=== PATIENT | female | born 1955 | race Caucasian/White ===

== ENCOUNTER 2017-02-10 00:57 | Emergency (ER) | payer OTHER ==
[~2017-02-10] VITALS: Ht 152.4 cm; Wt 55.0 kg
[~2017-02-10 00:57] MED LIST: ESTR0.5T PO; OMEP1PAC PO; SUCR1TAB26 PO
[2017-02-10] MEDS ORDERED: SODIUM CHLORIDE 0.9% 1,000 ML IV ONE ×2 (01:24→04:30)
[2017-02-10] MEDS ORDERED: SODIUM CHLORIDE FLUSH 10ML SYR IVF ONE (01:30)
[2017-02-10] MEDS ORDERED: ONDANSETRON 2MG/ML, 2ML IVPush ONE ×2 (01:30→04:30)
[2017-02-10] MEDS ORDERED: ONDANSETRON 2MG/ML, 2ML ONE (01:48)
[2017-02-10] MEDS ORDERED: MORPHINE SULFATE 4 MG/ML, 1ML ONE ×2 (01:48→04:08)
[2017-02-10] MEDS: MORPHINE SULFATE 4 MG/ML, 1ML IVPush PRN ×2 (01:51→04:14)
[2017-02-10 01:55] LABS: HEMOGLOBIN 12.9 g/dL (11.7-16.4)
[2017-02-10] MEDS ORDERED: PHENERGAN PO (01:57)
[2017-02-10 02:07] LABS: BLOOD UREA NITROGEN 16 mg/dL (7-18)
[2017-02-10 02:10] LABS: ASPARTATE AMINO TRANSFERASE 156 U/L (15-37)
[2017-02-10] MEDS ORDERED: FAMOTIDINE 20 MG/2 ML IVP ONE (02:30)
[2017-02-10] MEDS ORDERED: MAALOX/HYOSCYAMINE/LIDOCAINE 45 ML BOTTLE PO ONE (02:30)
[2017-02-10] MEDS ORDERED: MAALOX/HYOSCYAMINE/LIDOCAINE 45 ML BOTTLE ONE (02:32)
[2017-02-10] MEDS ORDERED: FAMOTIDINE 20 MG/2 ML ONE (02:32)
[2017-02-10] MEDS ORDERED: CEFTRIAXONE PMX 1GM/50ML 50 ML IV ONE (03:30)
[2017-02-10] MEDS ORDERED: CEFTRIAXONE PMX 1GM/50ML 50 ML ONE (03:38)
[2017-02-10] MEDS ORDERED: SODIUM CHLORIDE 0.9% 1,000 ML IV SCH (04:34)
[2017-02-10 05:07] VITALS: BP 118/72
== END 2017-02-10 05:11 | disposition home or self-care (01) ==
LOC: ED 03:50
DX: N10 Acute pyelonephritis (principal); R31.9 Hematuria, unspecified; R10.13 Epigastric pain; Z90.49 Acquired absence of other specified parts of digestive tract; Z90.710 Acquired absence of both cervix and uterus; Z91.041 Radiographic dye allergy status
CPT/HCPCS: 36415; 74176; 80053; 81001; 83690; 85025; 87086; 93005; 96361; 96365; 96375; 96376; 99285; J0696; J2405; J7030; S0028